=== PATIENT | male | born 1945 | race Caucasian/White ===

== ENCOUNTER 2017-02-28 20:32 | Emergency (ER) | payer MEDICARE ==
[2017-02-28 21:44] VITALS: BP 161/78
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
[2017-02-28] MEDS ORDERED: Lidocaine 2% 10 ML* VIAL INJ ONE (22:06)
[2017-02-28] MEDS ORDERED: Lidocaine 2% PF * 5 ML VIAL ONE (22:11)
== END 2017-02-28 22:50 | disposition home or self-care (01) ==
LOC: UCCORT 20:32
DX: S61.012A Laceration without foreign body of left thumb without damage to nail, initial encounter (principal); W45.8XXA Other foreign body or object entering through skin, initial encounter; Y93.9 Activity, unspecified; Y99.9 Unspecified external cause status; E78.5 Hyperlipidemia, unspecified; I48.91 Unspecified atrial fibrillation; Z79.01 Long term (current) use of anticoagulants; J44.9 Chronic obstructive pulmonary disease, unspecified
CPT/HCPCS: 12001; 99211; G0463; J2001

== ENCOUNTER 2017-05-14 11:02 | Emergency (ER) | payer MEDICARE ==
[2017-05-14] MEDS ORDERED: Silver Sulfadiazine 1%* 20 GM TOPICAL ONE (11:20)
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
[2017-05-14 11:46] VITALS: BP 121/57
== END 2017-05-14 11:46 | disposition home or self-care (01) ==
LOC: UCCORT 11:02
DX: T22.20XA Burn of second degree of shoulder and upper limb, except wrist and hand, unspecified site, initial encounter (principal); X08.8XXA Exposure to other specified smoke, fire and flames, initial encounter; Y92.9 Unspecified place or not applicable; Z87.891 Personal history of nicotine dependence; I10 Essential (primary) hypertension; Z79.01 Long term (current) use of anticoagulants
CPT/HCPCS: 99212; A9270-GY; G0463